=== PATIENT | male | born 1955 | race Caucasian/White ===

== ENCOUNTER → 2022-03-24 | Outpatient (CLI) | payer MEDICARE ==
--- NOTE | 2022-03-24 16:47 | CTL ---
EXAMINATION TYPE: CT Low Dose Lung DATE OF EXAM ORDERED: 03/24/2022 HISTORY: . Lung cancer screening CT DLP: 127.[address] CTDI: 3.5 mGy Automated exposure control for dose reduction was used. SCREENING VISIT: COMPARISON: TECHNIQUE: Low dose computed tomography scan was performed through the chest at 1 mm thick sections a nd reconstructed images in the coronal plane at [address] DIAGNOSTIC QUALITY: Satisfactory FINDINGS: LUNG NODULES: Present, detailed below: 1. A 0.2 cm nodule in the periphery of the left anterior lateral upper lobe. Series 4 image 59. 2. A 0.4 cm peripheral nodule anterior right upper lung field. Series 4 image 82. LUNGS: COPD: Severity: None Fibrosis: Severity: None Lymph nodes: None Other findings: None RIGHT PLEURAL SPACE: Effusion: None Calcification: None Thickening: None Pneumothorax: None LEFT PLEURAL SPACE: Effusion: None Calcification: None Thickening: None Pneumothorax: None HEART: Heart Size: Normal Coronary calcification: Mild Pericardial effusion: None OTHER FINDINGS: Upper abdomen: Normal Bony thorax: Normal Supraclavicular region: Normal Other: Ascending thoracic aorta at the level the main pulmonary artery measures 3.7 cm. The main pul monary artery at the bifurcation measures 2.6 cm. IMPRESSION: 1. Couple of tiny nodules. Suspicious nodule is not evident. Monitoring is recommended. FOLLOW UP CT CHEST RECOMMENDATION: Follow up standard CT chest 6 months to confirm stability. CT LUNG RAD: Lung-Rad 3 Probably Benign
== END | disposition home or self-care (01) ==
LOC: RADCTMAIN 13:36
PROVIDERS: ATTEND Family Medicine
DX: Z12.2 Encounter for screening for malignant neoplasm of respiratory organs (principal); R91.8 Other nonspecific abnormal finding of lung field; Z87.891 Personal history of nicotine dependence
CPT/HCPCS: 71271

== ENCOUNTER → 2022-04-22 | Outpatient (CLI) | payer MEDICARE ==
[2022-04-22 21:16] LABS: HCT 45.8 % (39.6-50.0); HGB 14.4 g/dL (13.0-17.0); MCH 30.3 pg (27.0-32.0); MCHC 31.4 g/dL (32.0-37.0); MCV 96.4 fL (80.0-97.0); Mean Platelet Volume 10.9 fL (9.5-12.2); NRBC Per 100 WBC 0 /100 WBCS (0.0-0.0); Platelet Count 174 X 10*3/uL (140-440); RBC 4.75 X 10*6/uL (4.40-5.60); RDW 13.2 % (11.5-14.5); WBC 10.12 X 10*3/uL (4.50-10.00)
[2022-04-24 03:16] LABS: ALT 21 U/L (10-49); AST 15 U/L (14-35); African American GFR (CKD) 85.1 (60.0-200.0); Albumin 4.4 g/dL (3.8-4.9); Albumin/Globulin Ratio 1.88 (1.60-3.17); Alkaline Phosphatase 55 U/L (41-126); BUN/Creat Ratio 21.44 Ratio (12.00-20.00); Blood Urea Nitrogen 22.3 mg/dL (9.0-27.0); Calcium 9.7 mg/dL (8.7-10.3); Carbon Dioxide 26.3 mmol/L (20.0-27.5); Chloride 101 mmol/L (96-109); Chol/HDL Ratio 3.63 Ratio; Globulin 2.3 g/dL (1.6-3.3); Glucose 104 mg/dL (70-110); LDL Cholesterol,Calculated 127.7 mg/dL (0.0-131.0); Non-African American GFR(CKD) 73.4 (60.0-200.0); Potassium 5.1 mmol/L (3.5-5.5); Sodium 138 mmol/L (135-145); Total Protein 6.7 g/dL (6.2-8.2)
== END | disposition home or self-care (01) ==
LOC: LABWHC1 12:51
PROVIDERS: ATTEND Physician Assistant Medical
DX: I10 Essential (primary) hypertension (principal); E11.9 Type 2 diabetes mellitus without complications; J44.9 Chronic obstructive pulmonary disease, unspecified; F17.210 Nicotine dependence, cigarettes, uncomplicated; L84 Corns and callosities
CPT/HCPCS: 36415; 80053; 80061; 83036; 84439; 84443; 85027

== ENCOUNTER → 2022-10-21 | Outpatient (CLI) | payer MEDICARE ==
--- NOTE | 2022-10-22 07:53 | CT ---
EXAMINATION TYPE: CT chest wo con DATE OF EXAM: 10/21/2022 COMPARISON: 03/24/2022 HISTORY: Unspecified abnormal finding of lung. CT DLP: 568.[address] of the chest was performed with lung and mediastinal window settings submitted. The la ck of contrast limits evaluation of the vascular, mediastinal and parenchymal structures including th e upper abdomen. LUNGS: The lungs are clear and free of infiltrate. No atelectasis. Stable 2 mm pulmonary nodule anter ior right upper lobe image 21 sequence 4. Similar 2 mm pulmonary nodule left upper lobe anteriorly im age 18 sequence 4. Both nodules are stable. Parenchymal scarring right middle lobe. No pleural effusi on. No CT evidence of interstitial lung disease. MEDIASTINUM/DELANEY: Thoracic aorta is of normal caliber with limited evaluation given lack of contrast . The heart is not enlarged. Coronary artery calcifications seen. No evidence for mediastinal mass. No lymph nodes greater than 1cm. UPPER ABDOMEN: 3 mm calculus upper pole left kidney. OTHER: No significant other abnormality. IMPRESSION: 1. Sub-3 mm pulmonary nodule seen within the upper lobes unchanged from prior study. Continued low d ose CT is recommended on an annual basis.
== END | disposition home or self-care (01) ==
LOC: RADCTMAIN 15:41
PROVIDERS: ATTEND Family Medicine
DX: R91.8 Other nonspecific abnormal finding of lung field (principal)
CPT/HCPCS: 71250

== ENCOUNTER 2023-06-15 10:05 | Day surgery (SDC) | payer MEDICARE ==
[2023-06-11 14:36] VITALS: BMI 35.4
[~2023-06-15 10:05] MED LIST: LIDOCAINE 1% (10MG/ML) FOR IV START INTRADERMA PRN
[2023-06-15] MEDS: LACTATED RINGERS 1,000 ML IV SCH (10:26)
[2023-06-15 10:51] LABS: Glucose,Whole Blood 133 mg/dL (70-110)
[2023-06-15 11:11] VITALS: RESP 16; TEMP 98
[2023-06-15] MEDS ORDERED: PROPOFOL 10 MG/ML 20 ML VIAL IV ONE (11:28)
[2023-06-15] MEDS ORDERED: LIDOCAINE 1% INJ 10MG/ML (20 ML MDV) ONE (11:28)
--- NOTE | 2023-06-15 11:50 | P.GSHP ---
History of Present Illness H&P Date: 06/15/23 Chief Complaint: Screening Colonoscopy This is a 67-year-old male presents today for screening colonoscopy. Patient denies a significant GI complaints.. Past Medical History Past Medical History: Diabetes Mellitus, Hypertension Additional Past Medical History / Comment(s): hx colon polyp, pulmonary nodules History of Any Multi-Drug Resistant Organisms: None Reported Additional Past Surgical History / Comment(s): circumcision as adult, colonoscopies Past Anesthesia/Blood Transfusion Reactions: No Reported Reaction Past Psychological History: No Psychological Hx Reported Smoking Status: Current every day smoker Past Alcohol Use History: Occasional Additional Past Alcohol Use History / Comment(s): smokes 1 pack/month, started smoking at 11 years old, past hx 1ppd. Past Drug Use History: None Reported - Past Family History Mother Family Medical History: Cancer Additional Family Medical History / Comment(s): breast cancer Medications and Allergies Home Medications Medication Instructions Recorded Confirmed Type Albuterol Inhaler [Ventolin Hfa 1 - 2 puff INHALATION Q6H PRN 06/11/23 06/15/23 History Inhaler] Aspirin [Adult Low Dose Aspirin EC] 81 mg PO DAILY 06/11/23 06/15/23 History Multivitamin [Multivitamins Adult 1 each PO DAILY 06/11/23 06/15/23 History Gummies] Naproxen Sodium [Aleve] 220 mg PO DAILY 06/11/23 06/15/23 History lisinopriL [Zestril] 20 mg PO DAILY 06/11/23 06/15/23 History metFORMIN HCL [Glucophage] 1,000 mg PO BID 06/11/23 06/15/23 History Allergies Allergy/AdvReac Type Severity Reaction Status Date / Time No Known Allergies Allergy Verified 06/15/23 10:26 Surgical - Exam Vital Signs Temp Pulse Resp BP Pulse Ox 98 F 91 16 162/79 95 06/15/23 10:35 06/15/23 10:35 06/15/23 10:35 06/15/23 10:35 06/15/23 10:35 - General well developed, well nourished, no distress - Eyes PERRL - ENT normal pinna - Neck no masses - Respiratory normal expansion - Cardiovascular Rhythm: regular - Abdomen Abdomen: soft, non tender Results - Labs Abnormal Lab Results - Last 24 Hours (Table) 06/15/23 Range/Units 10:41 POC Glucose (mg/dL) 133 H (70-110) mg/dL Assessment and Plan Assessment: We'll perform screening colonoscopy.
--- NOTE | 2023-06-15 12:00 | P.OP ---
Date of Procedure: 06/15/23 Preoperative Diagnosis: Screening colonoscopy Postoperative Diagnosis: Normal colon Procedure(s) Performed: Colonoscopy Anesthesia: MAC Surgeon: Joel Diaz Pathology: none sent Condition: stable Disposition: PACU Description of Procedure: PROCEDURE: The patient was placed on the endoscopy table in the lateral position. Digital rectal examination was performed which revealed no abnormalities. The prostate was symmetrical without nodules. Flexible colonoscope was then placed in the patient's anus and passed throughout the entire colon. The ileocecal valve was visualized. The cecum, ascending, transverse, descending and sigmoid colon were normal. The rectum was normal as well. There were no masses, polyps or diverticula noted in the entire colon. SUMMARY OF FINDINGS: Normal colonoscopy.
[2023-06-15 12:56] VITALS: BP 101/61; PULSE 80
== END 2023-06-15 12:37 | disposition home or self-care (01) ==
LOC: ORWHC2ENDO 10:05
PROVIDERS: ATTEND Surgery
DX: Z12.11 Encounter for screening for malignant neoplasm of colon (principal); I10 Essential (primary) hypertension; E78.5 Hyperlipidemia, unspecified; F17.210 Nicotine dependence, cigarettes, uncomplicated; F10.90 Alcohol use, unspecified, uncomplicated; R91.1 Solitary pulmonary nodule; Z80.3 Family history of malignant neoplasm of breast; Z79.82 Long term (current) use of aspirin; E11.9 Type 2 diabetes mellitus without complications; Z79.84 Long term (current) use of oral hypoglycemic drugs; Z79.899 Other long term (current) drug therapy
CPT/HCPCS: J2001; J2704; G0121

== ENCOUNTER → 2023-10-26 | Outpatient (CLI) | payer MEDICARE ==
--- NOTE | 2023-10-26 15:36 | CTL ---
EXAMINATION TYPE: CT Low Dose Lung DATE OF EXAM ORDERED: 10/26/2023 History: Lung cancer screening. CT DLP: 103.[address] CTDI: 2.6 mGy Automated exposure control for dose reduction was used. Comparison: 10/21/2022 TECHNIQUE: Low dose computed tomography scan was performed through the chest at 1 mm thick sections a nd reconstructed images in multiple planes at 1 mm and [address] DIAGNOSTIC QUALITY: Satisfactory FINDINGS: There are fused scattered sub-4 mm nodules bilaterally. The lungs are clear and there is no abnormal consolidation or interstitial density. There is no mediastinal, hilar or axillary adenopathy. There is no pleural effusion, pleural thickening or pneumothorax. No focal osseous lesions are seen. Limited scans the upper abdomen reveals no gross adenopathy. IMPRESSION: 1. BI-RADS Category 2 benign. Continue routine screening at yearly intervals. 2. No acute cardiopulmonary disease.
== END | disposition home or self-care (01) ==
LOC: RADCTMAIN 14:52
PROVIDERS: ATTEND Family Medicine
DX: Z12.2 Encounter for screening for malignant neoplasm of respiratory organs (principal); F17.210 Nicotine dependence, cigarettes, uncomplicated
CPT/HCPCS: 71271

== ENCOUNTER → 2024-10-27 | Outpatient (CLI) | payer MEDICARE ==
--- NOTE | 2024-10-27 14:20 | CTL ---
EXAMINATION TYPE: CT Low Dose Lung DATE OF EXAM ORDERED: 10/27/2024 COMPARISON: CT Low Dose Lung 10/26/2023, 03/24/2022, CT chest 10/21/2022 CLINICAL INDICATION: Male, 69 years old with history of Z12.2 LUNG CA SCR F17.210 CURRENT SMOKER; PH H, current smoker 1PPD x 60 years., Lung cancer screening, History of Smoking/tobacco use. TECHNIQUE: Low dose computed tomography scan was performed through the chest at 1 mm thick sections a nd reconstructed images in multiple planes at 1 mm and [address] DLP: 168.[address] CTDI: 4.1 mGy Automated exposure control for dose reduction was used. CT DIAGNOSTIC QUALITY: Satisfactory FINDINGS: Nodules: Anterior right upper lobe punctate calcified granuloma. Few stable scattered sub-4 mm pulmonary nodul es. No definitive new or enlarging pulmonary nodule. LUNGS: COPD: Severity: None Fibrosis: Severity: None Lymph nodes: None Other findings: None RIGHT PLEURAL SPACE: Effusion: None Calcification: None Thickening: None Pneumothorax: None LEFT PLEURAL SPACE: Effusion: None Calcification: None Thickening: None Pneumothorax: None HEART: Heart Size: Normal Coronary Calcification: Small Pericardial Effusion: None OTHER FINDINGS: Upper abdomen: None Bony thorax: Anterior osteophytosis of the lower thoracic spine. Supraclavicular region: None Other: Atherosclerotic calcification of aorta and its branches. IMPRESSION: Stable few scattered sub-4 mm pulmonary nodules. No new or enlarging pulmonary nodules. CT LUNG RAD AND CT CHEST RECOMMENDATION: Lung-Rad 2 Benign Appearance or Behavior: Continue annual sc reening with LDCT in 12 months. S Modifier (other clinically significant findings): None [facility], , 10/27/2024 2:17 PM
== END | disposition home or self-care (01) ==
LOC: RADCTMAIN 13:18
PROVIDERS: ATTEND Family Medicine
DX: Z12.2 Encounter for screening for malignant neoplasm of respiratory organs (principal); F17.210 Nicotine dependence, cigarettes, uncomplicated; R91.8 Other nonspecific abnormal finding of lung field
CPT/HCPCS: 71271